=== PATIENT | female | born 1945 | race African-American/Black ===

== ENCOUNTER 2018-09-02 22:40 | Inpatient (IN) | payer MEDICARE, MEDICAID ==
[~2018-09-02] VITALS: Ht 162.6 cm; Wt 127.0 kg
[2018-09-02 22:30] VITALS: BP 103/57
[2018-09-02] MEDS ORDERED: HYDROcodone-ACET 5/325MG TAB PO PRN (23:45)
[2018-09-02] MEDS ORDERED: ZOLPIDEM TARTRATE 5 MG TAB PO PRN (23:45)
[2018-09-02] MEDS ORDERED: hydrALAZINE HCL 20 MG/ML VL IV PRN (23:45)
[2018-09-02] MEDS ORDERED: ONDANSETRON HCL 4 MG/2 ML VIAL IV PRN (23:45)
[2018-09-03] MEDS: ALENDRONATE SODIUM 10 MG TAB PO SCH (00:30)
[2018-09-03] MEDS ORDERED: BISACODYL 5 MG EC TAB PO PRN (00:30)
[2018-09-03] MEDS ORDERED: diphenhdrAMINE HCL 25 MG CAP PO PRN (00:30)
[2018-09-03 00:41] LABS: Basophils # (auto) 0 uL; Basophils % (auto) 0.9 % (0.0-2.0); Eosinophils # (auto) 0.3 uL; Hematocrit 32.8 % (36.0-46.0); Hemoglobin 10.5 g/dL (12.2-16.2); Lymphocytes # (auto) 1.3 uL; Mean Corpuscular Hemoglobin 29.4 pg (28.0-32.0); Mean Corpuscular Hgb Conc. 32.2 g/dL (32.0-36.0); Mean Corpuscular Volume 91.4 fL (80.0-100.0); Monocytes # (auto) 0.4 uL; Monocytes % (auto) 9.9 % (0.0-12.0); Neutrophils % (auto) 49.2 % (37.0-80.0); Nucleated Red Blood Cells % 0.1 %; Platelet Count (auto) 172 10^3/uL (140-450); Red Blood Cells 3.58 10^6/uL (4.0-5.20); Red Cell Distribution Width 15.7 % (11.8-14.3); White Blood Cell 4.2 10^3/uL (4.4-10.8)
[2018-09-03 00:58] LABS: Albumin 2.7 g/dL (3.4-5.0); BUN/Creatinine Ratio 34.4; Calcium 8.7 mg/dL (8.5-10.1)
[2018-09-03 01:00] LABS: Bilirubin, Total 0.2 mg/dL (0.2-1.0); Total Protein 6.5 g/dL (6.4-8.2)
[2018-09-03] MEDS ORDERED: SODIUM CHLORIDE 0.9% 1,000 ML IV SCH (04:00)
[2018-09-03 05:28] LABS: Urine Bacteria NONE SEEN /hpf (None Seen); Urine Blood Negative /uL (Negative); Urine Specific Gravity 1.016 (1.001-1.035); Urine WBC 1 /hpf (0 - 5)
[2018-09-03 05:35] VITALS: BP 101/66
[2018-09-03] MEDS: SODIUM CHLOR 0.9% PF (SALINE LOCK) 10ML VIAL/SYR IV SCH ×2 (06:00→16:57)
[2018-09-03] MEDS: PANTOPRAZOLE 40 MG TAB PO SCH (06:42)
[2018-09-03] MEDS: FERROUS SULFATE 325 MG TAB PO SCH ×2 (08:14→17:46)
[2018-09-03 08:39] VITALS: BP 118/63
[2018-09-03] MEDS ORDERED: LOSARTAN POTASSIUM 25 MG TAB PO SCH (10:00)
[2018-09-03] MEDS ORDERED: FUROSEMIDE 20 MG TAB PO SCH (10:00)
[2018-09-03] MEDS ORDERED: POTASSIUM CHL 20 Meq TABLET PO SCH (10:00)
[2018-09-03] MEDS: METOPROLOL TARTRATE 25 MG TAB PO SCH ×2 (10:08→22:00)
[2018-09-03] MEDS ORDERED: SODIUM POLYSTYRENE SULF 15GM/60ML SUSP PO ONE (10:30)
[2018-09-03] MEDS: FUROSEMIDE 40 MG/4 ML VIAL IV SCH (11:21)
[2018-09-03 12:02] VITALS: BP 142/74
[2018-09-03 12:25] LABS: INR 0.95 (0.9-1.15); Partial Thromboplastin Time 25.7 sec (23.78-33.04); Prothrombin Time 10.2 sec (9.27-12.13)
[2018-09-03 17:18] LABS: Creatinine, Urine 15 mg/dL (30.0-125.0); Sodium Urine 130 mmol/L (40-220)
[2018-09-03 17:21] VITALS: BP 116/73
[2018-09-03 21:46] VITALS: BP 95/53
[2018-09-04] MEDS: SODIUM CHLOR 0.9% PF (SALINE LOCK) 10ML VIAL/SYR IV SCH ×4 (00:11→21:24)
[2018-09-04] MEDS ORDERED: BISA-4 PO (03:20)
[2018-09-04] MEDS ORDERED: DOCU100T15 PO ×2 (03:26)
[2018-09-04] MEDS ORDERED: FERR-20 PO (03:28)
[2018-09-04] MEDS ORDERED: SIMV10TA84 PO ×2 (03:33→03:49)
[2018-09-04] MEDS ORDERED: DIPH25CA66 PO (03:49)
[2018-09-04] MEDS ORDERED: ALEN70TA2 PO (03:50)
[2018-09-04] MEDS ORDERED: FURO20TA3 PO (03:51)
[2018-09-04] MEDS ORDERED: POTA20TA53 PO (03:53)
[2018-09-04] MEDS ORDERED: LOSA25TA40 PO (03:53)
[2018-09-04] MEDS ORDERED: METO25TA5 PO (03:57)
[2018-09-04] MEDS ORDERED: MOMLQ PO (04:03)
[2018-09-04] MEDS ORDERED: ACET1CAP14 PO (04:11)
[2018-09-04 04:37] VITALS: BP 97/54
[2018-09-04 06:08] LABS: RPR Non Reactive (Non Reactive)
[2018-09-04] MEDS: PANTOPRAZOLE 40 MG TAB PO SCH (06:47)
[2018-09-04] MEDS: FERROUS SULFATE 325 MG TAB PO SCH ×2 (07:49→17:39)
[2018-09-04 08:10] LABS: Albumin 2.7 g/dL (3.4-5.0); BUN/Creatinine Ratio 36.4; Calcium 8.4 mg/dL (8.5-10.1); Potassium 4.6 mmol/L (3.5-5.1)
[2018-09-04 08:13] LABS: Bilirubin, Total 0.6 mg/dL (0.2-1.0); Total Protein 6.5 g/dL (6.4-8.2)
[2018-09-04 08:14] LABS: Phosphorus 4.9 mg/dL (2.5-4.90); Uric Acid 7.6 mg/dL (2.6-6.0)
[2018-09-04 09:00] VITALS: BP 99/53
[2018-09-04] MEDS: ENOXAPARIN SOD 40 MG/0.4 ML SYRINGE SC SCH (09:34)
[2018-09-04] MEDS: METOPROLOL TARTRATE 25 MG TAB PO SCH ×2 (09:35→21:25)
[2018-09-04] MEDS: FUROSEMIDE 40 MG/4 ML VIAL IV SCH (09:35)
[2018-09-04 10:39] LABS: Hepatitis B Surface Antigen Negative (Negative); Hepatitis C Antibody Negative (Negative)
[2018-09-04 13:00] VITALS: BP 112/49
[2018-09-04 16:26] VITALS: BP 100/49
[2018-09-04] MEDS: ATORVASTATIN 20 MG TAB PO SCH (21:28)
[2018-09-04 21:41] VITALS: BP 92/58
[2018-09-05 04:41] VITALS: BP 102/50
[2018-09-05] MEDS: SODIUM CHLOR 0.9% PF (SALINE LOCK) 10ML VIAL/SYR IV SCH ×3 (05:35→21:12)
[2018-09-05] MEDS: PANTOPRAZOLE 40 MG TAB PO SCH (06:46)
[2018-09-05 07:06] LABS: Albumin 2.7 g/dL (3.4-5.0); BUN/Creatinine Ratio 35.7; Calcium 8.6 mg/dL (8.5-10.1); Potassium 4.8 mmol/L (3.5-5.1)
[2018-09-05 07:16] LABS: Bilirubin, Total 0.4 mg/dL (0.2-1.0); Total Protein 6.4 g/dL (6.4-8.2)
[2018-09-05] MEDS: FERROUS SULFATE 325 MG TAB PO SCH ×2 (07:49→17:37)
[2018-09-05 09:00] VITALS: BP 113/58
[2018-09-05] MEDS: FUROSEMIDE 40 MG/4 ML VIAL IV SCH (09:09)
[2018-09-05] MEDS: ENOXAPARIN SOD 40 MG/0.4 ML SYRINGE SC SCH (09:09)
[2018-09-05] MEDS: METOPROLOL TARTRATE 25 MG TAB PO SCH ×2 (09:10→21:12)
[2018-09-05 12:49] VITALS: BP 105/57
[2018-09-05 17:28] VITALS: BP 109/58
[2018-09-05] MEDS: ATORVASTATIN 20 MG TAB PO SCH (21:12)
[2018-09-05 22:00] VITALS: BP 116/68
[2018-09-06 05:00] VITALS: BP 111/69
[2018-09-06] MEDS: PANTOPRAZOLE 40 MG TAB PO SCH (06:26)
[2018-09-06] MEDS: SODIUM CHLOR 0.9% PF (SALINE LOCK) 10ML VIAL/SYR IV SCH ×3 (06:26→20:08)
[2018-09-06 07:15] LABS: Albumin 2.8 g/dL (3.4-5.0); Calcium 8.4 mg/dL (8.5-10.1)
[2018-09-06 07:17] LABS: BUN/Creatinine Ratio 38.7
[2018-09-06 07:31] LABS: Bilirubin, Total 0.4 mg/dL (0.2-1.0); Total Protein 6.6 g/dL (6.4-8.2)
[2018-09-06 09:00] VITALS: BP 113/66
[2018-09-06] MEDS: FUROSEMIDE 40 MG/4 ML VIAL IV SCH (09:54)
[2018-09-06] MEDS: ENOXAPARIN SOD 40 MG/0.4 ML SYRINGE SC SCH (09:54)
[2018-09-06] MEDS: FERROUS SULFATE 325 MG TAB PO SCH ×2 (09:54→17:14)
[2018-09-06] MEDS: METOPROLOL TARTRATE 25 MG TAB PO SCH ×2 (09:55→20:08)
[2018-09-06 13:00] VITALS: BP 121/70
[2018-09-06] MEDS: MULTIPLE VITAMINS W/ MINERALS TAB PO SCH (15:00)
[2018-09-06 17:00] VITALS: BP 148/90
[2018-09-06] MEDS: ASCORBIC ACID 500 MG TAB PO SCH (20:01)
[2018-09-06] MEDS: ATORVASTATIN 20 MG TAB PO SCH (20:01)
[2018-09-06 22:27] VITALS: BP 94/57
[2018-09-07] MEDS: ACETAMINOPHEN 500 MG TAB PO PRN ×2 (04:01→10:14)
[2018-09-07 05:13] VITALS: BP 116/57
[2018-09-07] MEDS: PANTOPRAZOLE 40 MG TAB PO SCH (05:42)
[2018-09-07] MEDS: SODIUM CHLOR 0.9% PF (SALINE LOCK) 10ML VIAL/SYR IV SCH ×3 (05:43→21:22)
[2018-09-07] MEDS: FERROUS SULFATE 325 MG TAB PO SCH ×2 (07:37→17:46)
[2018-09-07 09:00] VITALS: BP 131/69
[2018-09-07] MEDS: ASCORBIC ACID 500 MG TAB PO SCH ×2 (09:49→21:16)
[2018-09-07] MEDS: ENOXAPARIN SOD 40 MG/0.4 ML SYRINGE SC SCH (09:49)
[2018-09-07] MEDS: FUROSEMIDE 40 MG/4 ML VIAL IV SCH (10:00)
[2018-09-07] MEDS: MULTIPLE VITAMINS W/ MINERALS TAB PO SCH (10:00)
[2018-09-07] MEDS: METOPROLOL TARTRATE 25 MG TAB PO SCH ×2 (10:00→21:17)
[2018-09-07 13:00] VITALS: BP 119/64
[2018-09-07 17:00] VITALS: BP 110/61
[2018-09-07] MEDS: ATORVASTATIN 20 MG TAB PO SCH (21:16)
[2018-09-07 22:17] VITALS: BP 134/70
[2018-09-08 05:02] VITALS: BP 116/63
[2018-09-08] MEDS: SODIUM CHLOR 0.9% PF (SALINE LOCK) 10ML VIAL/SYR IV SCH ×3 (07:20→21:17)
[2018-09-08] MEDS: PANTOPRAZOLE 40 MG TAB PO SCH ×2 (07:20→11:28)
[2018-09-08 09:00] VITALS: BP 122/66
[2018-09-08] MEDS ORDERED: ADENOSINE 102 MG in GIVE UN-DILUTED 0 ML IV STA (09:16)
[2018-09-08] MEDS ORDERED: HYDROcodone-ACET 10/325MG TAB PO ONE (09:30)
[2018-09-08] MEDS: FERROUS SULFATE 325 MG TAB PO SCH ×2 (11:28→18:07)
[2018-09-08] MEDS: METOPROLOL TARTRATE 25 MG TAB PO SCH ×2 (11:28→21:11)
[2018-09-08] MEDS: ASCORBIC ACID 500 MG TAB PO SCH ×2 (11:28→21:10)
[2018-09-08] MEDS: FUROSEMIDE 40 MG/4 ML VIAL IV SCH (11:28)
[2018-09-08] MEDS: ENOXAPARIN SOD 40 MG/0.4 ML SYRINGE SC SCH (11:28)
[2018-09-08] MEDS: MULTIPLE VITAMINS W/ MINERALS TAB PO SCH (11:29)
[2018-09-08] MEDS: HYDROcodone-ACET 10/325MG TAB PO PRN ×3 (12:17→18:24)
[2018-09-08 13:00] VITALS: BP 146/73
[2018-09-08 17:03] VITALS: BP 129/75
[2018-09-08] MEDS: ATORVASTATIN 20 MG TAB PO SCH (21:11)
[2018-09-08 22:00] VITALS: BP 116/54
[2018-09-09 05:00] VITALS: BP 100/63
[2018-09-09] MEDS: SODIUM CHLOR 0.9% PF (SALINE LOCK) 10ML VIAL/SYR IV SCH ×3 (05:23→22:02)
[2018-09-09] MEDS: PANTOPRAZOLE 40 MG TAB PO SCH (05:26)
[2018-09-09] MEDS: FERROUS SULFATE 325 MG TAB PO SCH ×2 (08:02→15:57)
[2018-09-09 09:00] VITALS: BP 112/62
[2018-09-09] MEDS: ASCORBIC ACID 500 MG TAB PO SCH ×2 (10:00→22:01)
[2018-09-09] MEDS: METOPROLOL TARTRATE 25 MG TAB PO SCH ×2 (10:00→22:00)
[2018-09-09] MEDS: ENOXAPARIN SOD 40 MG/0.4 ML SYRINGE SC SCH (10:00)
[2018-09-09] MEDS: MULTIPLE VITAMINS W/ MINERALS TAB PO SCH (10:00)
[2018-09-09] MEDS: FUROSEMIDE 40 MG/4 ML VIAL IV SCH (10:00)
[2018-09-09] MEDS ORDERED: ADENOSINE 110 MG in GIVE UN-DILUTED 0 ML IV STA (10:16)
[2018-09-09 11:07] VITALS: BP 126/51
[2018-09-09 13:00] VITALS: BP 108/66
[2018-09-09 17:00] VITALS: BP 101/52
[2018-09-09 21:39] VITALS: BP 107/55
[2018-09-09] MEDS: ATORVASTATIN 20 MG TAB PO SCH (22:01)
[2018-09-09] MEDS: ALENDRONATE SODIUM 10 MG TAB PO SCH (22:01)
[2018-09-10 05:00] VITALS: BP 130/72
[2018-09-10] MEDS: PANTOPRAZOLE 40 MG TAB PO SCH (05:56)
[2018-09-10] MEDS: SODIUM CHLOR 0.9% PF (SALINE LOCK) 10ML VIAL/SYR IV SCH ×2 (05:56→13:43)
[2018-09-10 07:03] LABS: Potassium 4.5 mmol/L (3.5-5.1)
[2018-09-10 07:09] LABS: BUN/Creatinine Ratio 38.3; Calcium 9.3 mg/dL (8.5-10.1)
[2018-09-10 09:21] VITALS: BP 119/59
[2018-09-10] MEDS: METOPROLOL TARTRATE 25 MG TAB PO SCH (10:00)
[2018-09-10] MEDS: ASCORBIC ACID 500 MG TAB PO SCH (10:00)
[2018-09-10] MEDS: MULTIPLE VITAMINS W/ MINERALS TAB PO SCH (10:00)
[2018-09-10] MEDS: FERROUS SULFATE 325 MG TAB PO SCH ×2 (11:42→17:42)
[2018-09-10] MEDS: FUROSEMIDE 40 MG/4 ML VIAL IV SCH (11:43)
[2018-09-10] MEDS: ENOXAPARIN SOD 40 MG/0.4 ML SYRINGE SC SCH (11:44)
[2018-09-10 13:00] VITALS: BP 136/87
[2018-09-10 17:02] VITALS: BP 136/87
== END 2018-09-10 20:20 | DRG 682 ==
LOC: EAST 22:40
PROVIDERS: ADMIT Internal Medicine; ATTEND Internal Medicine
DX: N17.0 Acute kidney failure with tubular necrosis (principal); I50.33 Acute on chronic diastolic (congestive) heart failure; I13.0 Hypertensive heart and chronic kidney disease with heart failure and stage 1 through stage 4 chronic kidney disease, or unspecified chronic kidney disease; Z68.42 Body mass index [BMI] 45.0-49.9, adult; E44.0 Moderate protein-calorie malnutrition; M17.0 Bilateral primary osteoarthritis of knee; N18.3 Chronic kidney disease, stage 3 (moderate); D64.9 Anemia, unspecified; E87.5 Hyperkalemia; E66.01 Morbid (severe) obesity due to excess calories; M48.00 Spinal stenosis, site unspecified; M54.9 Dorsalgia, unspecified; G89.4 Chronic pain syndrome; M06.9 Rheumatoid arthritis, unspecified; Z96.642 Presence of left artificial hip joint; M81.0 Age-related osteoporosis without current pathological fracture; Z79.899 Other long term (current) drug therapy; Z87.81 Personal history of (healed) traumatic fracture; Z87.891 Personal history of nicotine dependence; Z74.01 Bed confinement status; Z86.718 Personal history of other venous thrombosis and embolism; Z99.3 Dependence on wheelchair
CPT/HCPCS: 36415; 71045; 73562; 76775; 78452; 80048; 80053; 81001; 82570; 83520; 83735; 84100; 84300; 84550; 85025; 85610; 85730; 86038; 86160; 86256; 86431; 86592; 86803; 87081; 87340; 93017; 93306; 97110; 97163; 97530; J0153